=== PATIENT | male | born 1975 | race Caucasian/White ===

== ENCOUNTER 2019-07-22 10:22 | Emergency (ER) | payer MEDICARE, OTHER ==
[2019-07-22 10:59] VITALS: BP 141/79; PULSE 89; RESP 18; TEMP 98.2
[2019-07-22] MEDS ORDERED: KETOROLAC 60 MG/2 ML VIAL IM STA (11:25)
[2019-07-22] MEDS ORDERED: ORPHENADRINE 30 MG/ML 2 ML VIAL IM STA (11:25)
--- NOTE | 2019-07-22 11:53 | ED ---
Back Pain HPI - General Chief Complaint: Back Pain/Injury Stated Complaint: Back Pain Time Seen by Provider: 07/22/19 11:14 Source: patient, RN notes reviewed, old records reviewed Limitations: no limitations - History of Present Illness Initial Comments: 44-year-old male presents today with chief complaint of worsening chronic back pain. Worsening over the past month. He reports he's had 3 back surgeries. He denies any specific fall or trauma. He denies any saddle anesthesias. Patient reports that he does have some chronic shooting pain down his left and right leg. He takes Soma for back pain. He reports occasional Motrin Tylenol as well. Patient denies any abdominal pain. Denies a fever chills or weight loss. - Related Data Allergies Allergy/AdvReac Type Severity Reaction Status Date / Time Narcotics AdvReac Nausea & Uncoded 07/22/19 10:59 Vomiting Review of Systems ROS Statement: Those systems with pertinent positive or pertinent negative responses have been documented in the HPI. ROS Other: All systems not noted in ROS Statement are negative. Past Medical History Past Medical History: Hypertension Additional Past Medical History / Comment(s): Chronic back pain History of Any Multi-Drug Resistant Organisms: None Reported Past Surgical History: Back Surgery, Orthopedic Surgery Past Psychological History: No Psychological Hx Reported Smoking Status: Current every day smoker Past Alcohol Use History: Daily Past Drug Use History: None Reported General Exam - General Exam Comments Initial Comments: For social male. Alert and oriented. Patient is resting comfortably in bed. Appears in no distress. Limitations: no limitations General appearance: alert, in no apparent distress Head exam: Present: atraumatic, normocephalic, normal inspection Eye exam: Present: normal appearance, PERRL, EOMI. Absent: scleral icterus, conjunctival injection, periorbital swelling ENT exam: Present: normal exam, mucous membranes moist Neck exam: Present: normal inspection. Absent: tenderness, meningismus, lymphadenopathy Respiratory exam: Present: normal lung sounds bilaterally. Absent: respiratory distress, wheezes, rales, rhonchi, stridor Cardiovascular Exam: Present: regular rate, normal rhythm, normal heart sounds. Absent: systolic murmur, diastolic murmur, rubs, gallop, clicks GI/Abdominal exam: Present: soft, normal bowel sounds. Absent: distended, tenderness, guarding, rebound, rigid Extremities exam: Present: normal inspection, full ROM, normal capillary refill. Absent: tenderness, pedal edema, joint swelling, calf tenderness Back exam: Present: normal inspection, tenderness (Lumbar Spinal Tenderness. Evidence of Scars from Previous Back Surgeries. Patient Has Some Right and Left Lumbar Spine. Tonsils Final Tenderness.) Neurological exam: Present: alert, oriented X3, CN II-XII intact Psychiatric exam: Present: normal affect Skin exam: Present: warm, dry, intact, normal color. Absent: rash Course Vital Signs 07/22/19 10:54 Temperature 98.2 F Pulse Rate 89 Respiratory 18 Rate Blood Pressure 141/79 O2 Sat by Pulse 98 Oximetry Medical Decision Making - Medical Decision Making His is a 44-year-old male presented today for a chronic back pain. Denies any significant fall or trauma red flag symptoms. Patient came to the emergency department expecting to have an MRI. I discussed he has no saddle anesthesia red flecks symptoms that would warrant emergent MRI at this time. Has normal sensation in bilateral extremities, bilateral dorsalis pedis pulses 2+. He has full range motion of the toes. Patient's pain has been chronic greater than 6 months as well. Has had history of back surgeries. I offered the Patient IM medications an x-ray at this time. Patient then decided to leave the emergency department without talking to provider, and stated he wanted to leave without any imaging or medication. Disposition Clinical Impression: Chronic back pain Disposition: Left Against Medical Advice Condition: Stable Is patient prescribed a controlled substance at d/c from ED?: No Referrals: Dennis Moyer MD [Primary Care Provider] - 1-2 days Time of Disposition: 12:00
== END 2019-07-22 11:50 | disposition left against medical advice (07) ==
LOC: EC 10:22
DX: G89.29 Other chronic pain (principal); M54.9 Dorsalgia, unspecified; I10 Essential (primary) hypertension; F17.200 Nicotine dependence, unspecified, uncomplicated; Z88.5 Allergy status to narcotic agent; Z53.20 Procedure and treatment not carried out because of patient's decision for unspecified reasons; Z98.890 Other specified postprocedural states
CPT/HCPCS: 99283

== ENCOUNTER → 2022-05-06 | Outpatient (CLI) | payer MEDICARE ==
--- NOTE | 2022-05-06 07:59 | US ---
EXAMINATION TYPE: US abdomen complete DATE OF EXAM: 05/06/2022 COMPARISON: NONE CLINICAL HISTORY: R19.7 DIARRHEA. diarrhea x 2 months TECHNIQUE: Multiple sonographic images of the abdomen are obtained. FINDINGS: EXAM MEASUREMENTS: Liver Length: 18.6 cm Gallbladder Wall: 0.3 cm CBD: 0.5 cm Spleen: 11.3 cm Right Kidney: 12.6 x 5.6 x 5.2 cm Left Kidney: 11.6 x 6.1 x 6.1 cm SERVICE MEMBER NOTES: technical limitations due to large amount of overlying bowel content Pancreas: Obscured by bowel gas Liver: enlarged, attenuating Gallbladder: no evidence of stones Evidence for sonographic Fields's sign: no CBD: limited evaluation Spleen: appears wnl Right Kidney: no evidence of hydronephrosis Left Kidney: cystic areas noted, largest = 4.2 x 2.6 x 4.2cm Upper IVC: Obscured by overlying bowel gas Abd Aorta: visualized portions appear wnl, bifurcation obscured The intrahepatic portion of the IVC and proximal abdominal aorta are within normal limits. There is no evidence of cholelithiasis. Common bile duct is unremarkable. The visualized portions of the bruce creas are homogenous. The spleen is unremarkable. Kidneys are symmetric and free of hydronephrosis. IMPRESSION: 1. Hepatomegaly with underlying probable hepatic steatosis. 2. Simple cyst left kidney.
== END | disposition home or self-care (01) ==
LOC: RADUSWWP 07:04
PROVIDERS: ATTEND Family Medicine
DX: N28.1 Cyst of kidney, acquired (principal); R16.0 Hepatomegaly, not elsewhere classified
CPT/HCPCS: 76700

== ENCOUNTER 2022-07-06 09:18 | Day surgery (SDC) | payer MEDICARE ==
[~2022-07-06 09:18] MED LIST: LACTATED RINGERS 1,000 ML IV ONE; LACTATED RINGERS 1,000 ML IV SCH
[2022-07-06 10:21] VITALS: RESP 16; TEMP 98.6
[2022-07-06] MEDS ORDERED: MIDAZOLAM 2 MG/2 ML VIAL ONE (10:30)
[2022-07-06] MEDS ORDERED: LIDOCAINE 2% INJ 20 MG/ML (2 ML VIAL) ONE (10:30)
[2022-07-06] MEDS ORDERED: PROPOFOL 10 MG/ML 20 ML VIAL IV ONE (10:30)
--- NOTE | 2022-07-06 10:49 | P.PCN ---
Date of Procedure: 07/06/22 Procedure(s) Performed: BRIEF HISTORY: Patient is a 47-year-old pleasant white male scheduled for an elective colonoscopy as a part of chronic diarrhea for the last two months duration. He has bowel movements and rhythm to 10 a day which are loose to watery in consistency with no blood or mucus in the stool. PROCEDURE PERFORMED: Colonoscopy biopsy and snare polypectomy. PREOPERATIVE DIAGNOSIS: Chronic diarrhea. IV sedation per Anesthesia. PROCEDURE: After informed consent was obtained, the patient, was brought into the endoscopy unit. IV sedation was administered by Anesthesia under continuous monitoring. Digital rectal examination was normal. Initially the Olympus CF-160 flexible video colonoscope was then inserted in the rectum, gradually advanced into the cecum without any difficulty. Careful examination was performed as the scope was gradually being withdrawn. Ileocecal valve and the appendiceal orifice were visualized and appeared normal. Prep was excellent. Mucosa of the cecum, we normal. In the ascending colon there was a 5 mm and 7 mm polyp removed by snare polypectomy. In the hepatic flexure there was a 4 mm and 5 mm polyp removed by snare polypectomy. Rest of the ascending colon, transverse colon, descending colon, sigmoid colon, and rectum appeared normal. Random biopsies were done from ascending and descending colon to rule out microscopic/collagenous colitis. Retroflexion was performed in the rectum and no lesions were seen. The patient tolerated the procedure well. IMPRESSION: 5 mm and 7 mm ascending colon polyp status post polypectomy 4 mm and 5 hepatic Flexure polyp status post polypectomy Rest of the colon appeared normal RECOMMENDATIONS: Findings of this examination were discussed with the patienas well as his family. He was advised to follow with the biopsy results. If the biopsy results and he can have a repeat colonoscopy in 5 years..
[2022-07-06 11:12] VITALS: BP 127/78; PULSE 89
== END 2022-07-06 11:15 | disposition home or self-care (01) ==
LOC: ORWHC2ENDO 09:18
PROVIDERS: ATTEND Internal Medicine Gastroenterology
DX: K52.9 Noninfective gastroenteritis and colitis, unspecified (principal); D12.2 Benign neoplasm of ascending colon; D12.3 Benign neoplasm of transverse colon; I10 Essential (primary) hypertension
CPT/HCPCS: 88305; 45380; 45385; J2250; J2704; J2001